=== PATIENT | female | born 1985 | race Caucasian/White ===

== ENCOUNTER 2021-01-23 09:44 | Emergency (ER) | payer OTHER ==
[~2021-01-23] VITALS: Ht 165.1 cm; Wt 78.2 kg
[~2021-01-23 09:44] MED LIST: No Historical Meds; norco PO
[2021-01-23] MEDS ORDERED: CETI-24 (09:52)
[2021-01-23] MEDS ORDERED: KETOROLAC 30 MG/ML 1ML VIAL IM ONE (11:40)
[2021-01-23] MEDS ORDERED: ACETAMINOPHEN 500 MG TAB PO ONE (11:40)
[2021-01-23] MEDS ORDERED: LIDOCAINE 5% (LIDODERM) PATCH TD ONE (11:40)
[2021-01-23] MEDS ORDERED: CYCLOBENZAPRINE 10MG TABLET PO ONE (11:40)
[2021-01-23 12:29] LABS: APPEARANCE, URINE HAZY (CLEAR); BACTERIA, URINE AUTO NEGATIVE (NEGATIVE); BILIRUBIN, URINE AUTO NEGATIVE (NEGATIVE); BLOOD, URINE BLOOD NEGATIVE (NEGATIVE); COLOR, URINE YELLOW (YELLOW); GLUCOSE, URINE (UA) AUTO NEGATIVE (NEGATIVE); KETONE, URINE AUTO NEGATIVE (NEGATIVE); LEUKOCYTE ESTERASE, URINE AUTO NEGATIVE (NEGATIVE); NITRITE, URINE AUTO NEGATIVE (NEGATIVE); PROTEIN, URINE AUTO NEGATIVE (NEGATIVE); RBC, URINE AUTO 0 /HPF (0-3); SQUAMOUS EPITHELIAL CELL UR AU 1 /HPF (0-6); UROBILINOGEN, URINE AUTO 0.2 mg/dL (0.0-2.0); WBC, URINE AUTO 0 /HPF (0-3)
--- NOTE | 2021-01-23 12:47 | REP ---
INDICATION: low back pain radiating to LLE. COMPARISON: None. FINDINGS: Five views of the lumbosacral spine show no acute fracture, dislocation or subluxation. The intervertebral disc spaces are symmetric and well maintained. There is no spondylolysis or spondylolisthesis. The pedicles are intact bilaterally and there is no destructive osseous lesion. Mild degenerative facet joint changes are seen L3-4 to L5-S1 bilaterally IMPRESSION: Unremarkable lumbosacral spine series. Mild degenerative facet joint changes <Electronically signed by Mathew Allan > 01/23/21 1600
--- NOTE | 2021-01-23 12:48 | REP ---
INDICATION: L hip pain radiating to L thigh. TECHNIQUE: AP pelvis two views left hip FINDINGS: The femoral heads are spherical shape and symmetric in appearance. The hip joint spaces are symmetric and well maintained bilaterally. There is no acute fracture or destructive osseous lesion. There is no buttressing. There is no prominent marginal osteophytosis. IMPRESSION: Within normal limits <Electronically signed by Mathew Allan > 01/23/21 0206
--- NOTE | 2021-01-23 14:06 | REP ---
INDICATION: L low back pain radiating to LLE. COMPARISON: None. TECHNIQUE: 4 mm axial images through the lumbar spine were obtained without contrast. Sagittal and coronal reconstructions were obtained from the original data set. FINDINGS: The lumbar vertebra are well maintained in height with small anterior osteophytes present. Mild disc space narrowing is seen throughout the lumbar spine. No acute fracture or subluxation is present. No pars defects are identified and no degenerative listhesis is present. L1/2: The foramina are adequate bilaterally. No significant disc bulge or herniation is evident. No spinal stenosis is present. L2/3: The foramina adequate bilaterally. No significant disc bulge or herniation is present. No spinal stenosis is identified. L3/4: The foramina are adequate bilaterally. No significant disc bulge or herniation is identified. No spinal stenosis is present. L4/5: The foramina are adequate bilaterally. A 5 mm left lateral disc protrusion is present which appears to impinge upon the exiting left L4 nerve rootlet. Mild ligament flavum hypertrophy is present that in combination with a 2 mm central disc protrusion narrows the thecal sac to 8.6 mm in AP diameter and 10.3 mm in the inter pedicular diameter. L5/S1: The foramina are adequate bilaterally. A 4 mm right paracentral, 6 mm central and left paracentral and 4 mm left lateral disc protrusion is present. This appears to impinge upon the exiting L5 nerve rootlet. No central canal stenosis is present. IMPRESSION: Large left lateral disc protrusion which appears to impinge on the exiting left L4 nerve rootlet. Mild central canal stenosis is present at that level. 2. Large disc protrusion at L5/S1 which appears to impinge upon the exiting left L5 nerve rootlet. <Electronically signed by Gerald Hooker > 01/23/21 [id number]
[2021-01-23] MEDS ORDERED: NORCO, ANEXSIA 5/325MG TABLET (HYDROcodone/ACETAMINOPHEN) PO ONE (14:30)
[2021-01-23] MEDS ORDERED: predniSONE 20 MG TAB PO ONE (14:30)
[2021-01-23] MEDS ORDERED: MEDR4PAK PO (14:41)
[2021-01-23] MEDS ORDERED: HYDR-3713 PO (14:41)
[2021-01-23] MEDS ORDERED: IBUP80TA PO (14:41)
[2021-01-23 15:01] VITALS: BP 125/74
[2021-01-23] MEDS ORDERED: **NOTE PATIENT COMMENT** MISC XX SCH (21:00)
== END 2021-01-23 15:01 | disposition home or self-care (01) ==
LOC: M ED 09:44
DX: M54.17 Radiculopathy, lumbosacral region (principal); M54.42 Lumbago with sciatica, left side; M51.27 Other intervertebral disc displacement, lumbosacral region; M48.07 Spinal stenosis, lumbosacral region; J30.89 Other allergic rhinitis; F17.200 Nicotine dependence, unspecified, uncomplicated
CPT/HCPCS: 36415; 72110; 72131; 73502; 81001; 84702; 96372; 99284; J1885; J7512